=== PATIENT | male | born 2000 | race Caucasian/White ===

== ENCOUNTER 2024-08-04 08:40 | Emergency (ER) | payer BC, SELFPAY ==
[2024-08-04 08:40] VITALS: BP 123/85; PULSE 84; RESP 16; TEMP 36.3; O2SAT 97
--- NOTE | 2024-08-04 09:03 | ECG_ITS ---
Test Date: 2024-08-04 09:23:18 Measurements Intervals [place] Rate: 59 P: 66 KS: 135 QRS: 91 QRSD: 114 T: 67 QT: 371 QTc: 369 Interpretive Statements SINUS BRADYCARDIA RIGHT AXIS DEVIATION INTRAVENTRICULAR CONDUCTION DELAY MINIMAL Q WAVES- INFERIOR LEADS PEAKED T WAVES- CONSIDER HYPERKALEMIA ABNORMAL ECG No previous ECG available for comparison Electronically Signed On 08-04-2024 09:28:20 CDT by Henri Shi D.O.
--- NOTE | 2024-08-04 09:03 | ED.PSYCH ---
HPI - Psych General Chief Complaint: Psychiatric Symptoms Stated Complaint: psychiatric evaluation Time Seen by Provider: 08/04/24 09:03 Source: patient Mode of arrival: ambulatory Limitations: no limitations History of Present Illness HPI Narrative: 23-year-old male with no significant past medical history, no prior psychiatric history, Marijuana use was told by his girlfriend of 1 year that she did not want to continue the relationship. This happened yesterday. He became depressed and texted her that he would kill himself if she dated someone else. Patient's girlfriend alerted EMS who called medical control at [facility]. EMS was directed to bring the patient to the ED for further evaluation. The patient denies any suicidal ideation. He denies suicide plan. no history of alcohol or drug use other than marijuana. MD complaint: feels depressed Onset (ago): day(s) ( One day) Duration: constant History of same: No Relieving factors: none Exacerbating factors: none Associated psychiatric symptoms: depression Associated symptoms: denies other symptoms Treatments prior to arrival: none Related Data Allergies Allergy/AdvReac Type Severity Reaction Status Date / Time amoxicillin (From Amoxil) Allergy Mild Unknown Verified 08/04/24 09:00 Penicillins Allergy Mild Unknown Verified 08/04/24 09:00 Review of Systems Review of Systems: All systems reviewed & are unremarkable except as noted in HPI and below Constitutional: Constitutional: Reports as per HPI and Reports no additional constitutional complaints Eyes: Eyes: Reports as per HPI and Reports no additional eye complaints ENT: Reports system reviewed and no additional complaints, except as documented and Reports as per HPI Cardiovascular: Cardiovascular: Reports as per HPI and Reports no additional cardiovascular complaints Respiratory: Respiratory: Reports as per HPI and Reports no additional respiratory complaints Gastrointestinal: Gastrointestinal: Reports as per HPI and Reports no additional gastrointestinal complaints Genitourinary: Genitourinary: Reports no additional male genitourinary complaints and Reports as per HPI Musculoskeletal: Musculoskeletal: Reports no additional musculoskeletal complaints and Reports as per HPI Integumentary/Breasts: Skin/Breast: Reports system reviewed and no additional complaints, except as docu and Reports as per HPI Neurologic: Reports system reviewed and no additional complaints, except as documented and Reports as per HPI Psychiatric: Psychiatric: Reports no additional psychiatric complaints, Reports as per HPI and Reports depression Endocrine: Endocrine: Reports no additional endocrine complaints and Reports as per HPI Hematologic/Lymphatic: Hematologic/Lymphatic: Reports no additional hematologic/lymphatic complaints and Reports as per HPI Allergic/Immunologic: Allergic/Immunologic: Reports no additional allergic/immunologic complaints and Reports as per HPI [facility] Social History Social History (Updated 08/04/24 @ 09:11 by Balta Issa MD) Social History: Marijuana use Substance use type: marijuana Exam Narrative: vitals are stable. Const: General: healthy appearing Orientation/consciousness: patient oriented x3 Limitations: no limitations HENMT: Head: normal to inspection Ears: external ears normal Face/Nose/Sinus: Normal external nose present Face and sinus: normal facial exam Mouth: Yes Normal oral and palatal mucosa present Throat: posterior oropharynx normal Eyes: Conjunctivae: conjunctivae normal Pupils: Equal, round and reactive pupils present EOM: EOMs intact bilaterally Direct Ophthalmoscopy: no photophobia Neck: Neck: normal visual inspection, no lymphadenopathy and no meningeal signs Chest: Chest palpation & inspection: normal inspection of the chest Resp: Effort & Inspection: normal respiratory effort Auscultation: clear to auscultation bilaterally Cardio: Rate: regular rate Rhythm: regular rhythm GI: GI Palp: Yes Soft to palpation Auscultation: normal bowel sounds Other: No tenderness/rigidity /rebound. : General: Yes no CVA tenderness Back/Spine/Pelvis: Back: no CVA tenderness Skin: General skin exam: normal color Rashes: no rashes Wounds: no wounds Neuro: General: patient oriented x3, moves all extremities, no meningeal signs, no focal motor deficits and CN's II-XI intact bilaterally Cranial nerves: Yes Nystagmus not present Speech: normal speech Gait exam (Neuro): Normal gait present Extrem: General: normal to inspection and no clubbing, cyanosis or edema Psych: Mental Status: mental status grossly normal Affect: normal affect Course Course Emergency Course: Depression no suicidal ideation Vital Signs Vital signs: Vital Signs Temperature 36.3 C L 08/04/24 08:40 Pulse Rate 84 08/04/24 08:40 Respiratory Rate 16 08/04/24 08:40 Blood Pressure 123/85 08/04/24 08:40 Pulse Oximetry 97 08/04/24 08:40 Oxygen Delivery Room Air 08/04/24 08:40 Temperature 36.2 C L 08/04/24 10:23 Pulse Rate 65 08/04/24 10:23 Respiratory Rate 18 08/04/24 10:23 Blood Pressure 136/77 08/04/24 10:23 Pulse Oximetry 97 08/04/24 10:23 Oxygen Delivery Room Air 08/04/24 10:23 MDM - Psych MDM Narrative Medical decision making narrative: depression patient is not suicidal. No suicidal ideation. No suicidal plan. No prior history. Differential Diagnosis Differential diagnosis: Likely depression and drug-induced psychotic disorder Medical Records Attestation: I reviewed the patient's medical records. Lab Data Attestation: I reviewed the patient's lab results. 08/04/24 09:19 08/04/24 09:19 Labs: Lab Results 08/04/24 08/04/24 Range/Units 09:02 09:19 WBC 8.7 (4.8-10.8) K/mm3 RBC 4.63 L (4.70-6.10) M/mm3 Hgb 14.9 (14.0-18.0) g/dL Hct 42.1 (40.0-54.0) % MCV 90.9 (78.0-102.0) fL MCH 32.2 H (27.0-31.0) pg MCHC 35.4 (32-36) g/dL RDW 11.8 (11.6-14.4) % Plt Count 196 (150-420) K/mm3 MPV 9.7 (8.7-11.0) fl Immature Gran % (Auto) 0.3 H (0.0-0.0) % Neut % (Auto) 83.2 H (50.0-70.0) % Lymph % (Auto) 10.2 L (18.0-42.0) % [place] % (Auto) 4.8 (2.0-11.0) % Eos % (Auto) 0.8 L (1.0-6.0) % Baso % (Auto) 0.7 (0.0-1.0) % Lymph # (Auto) 0.89 L (1.10-4.50) K/mm3 [place] # (Auto) 0.42 (0.10-0.90) K/mm3 Eos # (Auto) 0.07 (0.02-0.50) K/mm3 Baso # (Auto) 0.06 (0.00-0.10) K/mm3 Abs Immat Gran (auto) 0.03 H (0.00-0.00) K/mm3 Absolute Neuts (auto) 7.27 H (1.70-7.20) K/mm3 Absolute Nucleated RBC 0.00 (0.00-0.00) K/mm3 Nucleated RBC % 0.0 (0-0.0) % Sodium 139 (137-145) mmol/L Potassium 4.0 (3.4-5.0) mmol/L Chloride 107 (98-107) mmol/L Carbon Dioxide 25 (22-30) mmol/L Anion Gap 7 (4-12) mmol/L BUN Pending Creatinine 0.85 (0.7-1.3) mg/dL Estim Creat Clear Calc Not Reportable Estimated GFR > 60 (59 - ) Glucose 100 (65-110) mg/dL Calculated Osmolality Pending Calcium 9.5 (8.4-10.2) mg/dL Total Bilirubin 1.0 (0.2-1.3) mg/dL AST 28 (17-59) U/L ALT 13 (6-50) U/L Alkaline Phosphatase 58 (38-126) U/L Total Protein 7.6 (6.3-8.2) g/dL Albumin 4.9 (3.5-5.1) g/dL TSH 0.974 (0.465-4.680) uIU/mL Salicylates < 1.0 L (2-20) mg/dL Urine Opiates Screen Negative (Negative) Urine Methadone Screen Negative (Negative) Acetaminophen < 10 L (10-30) ug/mL Ur Barbiturates Screen Negative (Negative) Ur Phencyclidine Scrn Negative (Negative) Ur Amphetamine Screen Negative (Negative) U Benzodiazepines Scrn Negative (Negative) Urine Cocaine Screen Negative (Negative) U Cannabinoids Screen Positive A (Negative) Ethyl Alcohol Pending Discharge Plan Discharge Clinical Impression: Depression Qualifiers: Major depression recurrence: single episode Active/Remission status: currently active Major depression episode severity: mild Patient Disposition: Home Condition: Stable Instructions: Antibiotic Form, Depression (ED) Patient Language: Pashto Follow-up/Referrals: Maggie,Aamir Snow MD [Primary Care Provider] - Time of Disposition: 11:07
--- NOTE | 2024-08-04 09:10 | PC.NURSE ---
patient report reeived from BRONSON Garcia. patient awake and calm, resting on bed in ED 5.
[2024-08-04 09:23] LABS: Basophils Absolute Auto 0.06 K/mm3 (0.00-0.10); Basophils Percent Auto 0.7 % (0.0-1.0); Eosinophils Absolute Auto 0.07 K/mm3 (0.02-0.50); Eosinophils Percent Auto 0.8 % (1.0-6.0); Hematocrit 42.1 % (40.0-54.0); Hemoglobin 14.9 g/dL (14.0-18.0); Immature Granulocyte Absolute 0.03 K/mm3 (0.00-0.00); Immature Granulocyte Percent A 0.3 % (0.0-0.0); Lymphocytes Absolute Auto 0.89 K/mm3 (1.10-4.50); Lymphocytes Percent Auto 10.2 % (18.0-42.0); Mean Corpuscular HGB Conc 35.4 g/dL (32-36); Mean Corpuscular Hemoglobin 32.2 pg (27.0-31.0); Mean Corpuscular Volume 90.9 fL (78.0-102.0); Mean Platelet Volume 9.7 fl (8.7-11.0); Monocytes Absolute Auto 0.42 K/mm3 (0.10-0.90); Monocytes Percent Auto 4.8 % (2.0-11.0); Neutrophils Absolute Auto 7.27 K/mm3 (1.70-7.20); Neutrophils Percent Auto 83.2 % (50.0-70.0); Platelet Count Result 196 K/mm3 (150-420); Red Blood Count 4.63 M/mm3 (4.70-6.10); Red Cell Distribution Width 11.8 % (11.6-14.4); White Blood Count 8.7 K/mm3 (4.8-10.8)
[2024-08-04 09:37] LABS: Amphetamine Screen Urine Negative (Negative); Barbiturate Screen Urine Negative (Negative); Benzodiazepines Screen Urine Negative (Negative); Cocaine Screen Urine Negative (Negative); Methadone Screen Urine Negative (Negative); Opiate Screen Urine Negative (Negative); Phencyclidine Screen Urine Negative (Negative)
[2024-08-04 09:38] LABS: Cannabinoid Screen Urine Positive (Negative)
[2024-08-04 09:40] LABS: Acetaminophen < 10 ug/mL (10-30)
--- NOTE | 2024-08-04 09:51 | PC.NURSE ---
patient calm, cooperative and changed back into personal clothes. states he is ready to leave however patient reports he is willing to stay for results of blood work. update provided by RN.
[2024-08-04 10:00] LABS: Anion Gap 7 mmol/L (4-12); Carbon Dioxide 25 mmol/L (22-30); Chloride 107 mmol/L (98-107); Sodium 139 mmol/L (137-145)
[2024-08-04 10:01] LABS: Alanine Aminotransferase 13 U/L (6-50); Albumin Level 4.9 g/dL (3.5-5.1); Alkaline Phosphatase 58 U/L (38-126); Aspartate Amino Transferase 28 U/L (17-59); Calcium 9.5 mg/dL (8.4-10.2); Estimated Glomerular Filt Rate > 60; Glucose 100 mg/dL (65-110); Total Protein 7.6 g/dL (6.3-8.2)
[2024-08-04 10:13] LABS: Salicylate < 1.0 mg/dL (2-20)
[2024-08-04 10:23] VITALS: BP 136/77; PULSE 65; RESP 18; TEMP 36.2; O2SAT 97
--- NOTE | 2024-08-04 10:31 | PC.NURSE ---
patient update provided as labs remain pending. patient calm and cooperative at this time.
[2024-08-04 10:49] LABS: Thyroid Stimulating Hormone 0.974 uIU/mL (0.465-4.680)
--- NOTE | 2024-08-04 11:05 | PC.NURSE ---
patient remains awaiting lab results prior to DC. states he is ready to leave but remains calm and cooperative.
[2024-08-04 11:09] LABS: Ethanol < 10 mg/dL (<10)
[2024-08-04 11:11] LABS: Blood Urea Nitrogen 7 mg/dL (9-20); Osmolality Calculated 286 mOsm/kg (285-295)
== END 2024-08-04 11:20 | disposition home or self-care (01) ==
PROVIDERS: Emergency Provider Internal Medicine Critical Care Medicine; PCP Family Medicine
DX: F32.0 Major depressive disorder, single episode, mild (principal)
CPT/HCPCS: 36415; 80053; 80143; 80179; 80307; 82077; 84443; 85025; 93005; 99284